=== PATIENT | female | born 1975 | race Caucasian/White ===

== ENCOUNTER 2016-07-27 20:56 | Emergency (ER) | payer OTHER ==
[2016-07-27 21:04] VITALS: BP 127/78; PULSE 87; RESP 16; TEMP 98.3
--- NOTE | 2016-07-27 21:20 | ED ---
Lower Extremity Injury HPI - General Chief Complaint: Extremity Injury, Lower Stated Complaint: Foot Pain Time Seen by Provider: 07/27/16 21:14 Source: patient Mode of arrival: ambulatory Limitations: no limitations - History of Present Illness Initial Comments: Patient is a 41-year-old female presenting to the emergency department with complaints of left foot pain. Patient states she was at the grocery store when she accidentally bumped her foot against a shopping cart. Patient states that her little toe went sideways but now looks normal. Patient is complaining of a throbbing pain currently rated 6 out of 10. Patient is able to ambulate. Patient denies previous surgery or injury to right lower extremity. Patient states she took Motrin approximately 3 hours prior to arrival. Type of Injury: blunt Place: other Severity: moderate Severity scale (1-10): 6 Improves With: NSAID, immobilization Worsens With: weight bearing, palpation Context: walking Associated Symptoms: swelling, tingling, ambulatory Treatments Prior to Arrival: NSAIDS - Related Data Home Medications Medication Instructions Recorded Confirmed Azithromycin [Zithromax Z-pack] 07/15/13 07/15/13 Hyoscyamine Sulfate [Hyoscyamine 07/15/13 07/15/13 Sulfate ER] Previous Rx's Medication Instructions Recorded Dicyclomine HCl [Bentyl] 20 mg PO QID #10 tab 07/16/13 Allergies Allergy/AdvReac Type Severity Reaction Status Date / Time venom-honey bee Allergy Anaphylaxis Verified 07/27/16 21:04 [bee venom (honey bee)] Review of Systems ROS Statement: Those systems with pertinent positive or pertinent negative responses have been documented in the HPI. ROS Other: All systems not noted in ROS Statement are negative. Past Medical History Additional Past Medical History / Comment(s): IBS History of Any Multi-Drug Resistant Organisms: None Reported Additional Past Surgical History / Comment(s): ovarian cyst removal Past Psychological History: No Psychological Hx Reported Smoking Status: Current every day smoker Past Alcohol Use History: None Reported Past Drug Use History: None Reported General Exam - General Exam Comments Initial Comments: GENERAL: Pt awake and alert, well-appearing, well-nourished, and in no acute distress. HEAD: Atraumatic, normocephalic. EYES: Pupils equal, round, and reactive to light, extraocular movements intact, sclera anicteric, conjunctiva are normal. ENT: Moist mucous membranes. NECK:Normal range of motion, supple without lymphadenopathy. LUNGS: Breath sounds clear to auscultation bilaterally. No wheezes, rales, or rhonchi. HEART: Heart S1, S2, no S3 or S4. Regular rate and rhythm. No murmurs, rubs or gallops. ABDOMEN: Soft, nontender, nondistended, normoactive bowel sounds. NEUROLOGICAL: Pt oriented x 3. Cranial nerves II through XII grossly intact. Strength and sensation grossly intact. PSYCH: Normal mood, normal affect. SKIN: Warm, dry, intact. Limitations: no limitations Right Ankle exam: Present: normal inspection, full ROM. Absent: tenderness, swelling Foot/Toe exam: Present: full ROM, tenderness, swelling, ecchymosis, tenderness at base of 5th metatarsal. Absent: deformity, calcaneal tenderness Neurovascular tendon exam: Present: no vascular compromise. Absent: abnormal cap refill, motor deficit, sensory deficit, tendon deficit, extremity cold to touch, foot drop, significant pain with passive ROM of distal joint Gait: observed and limited by pain Course Vital Signs 07/27/16 21:00 Temperature 98.3 F Pulse Rate 87 Respiratory 16 Rate Blood Pressure 127/78 O2 Sat by Pulse 99 Oximetry Medical Decision Making - Medical Decision Making Right foot contusion. X-ray of right foot with no evidence of acute fracture or dislocation. Patient instructed to continue Motrin and ice as needed for pain. Patient instructed [facility] if pain persists. Patient instructed to return to the emergency department if symptoms do not improve or get worse. Patient agrees with treatment plan. Discharge instructions and return parameters reviewed. - Radiology Data Radiology results: report reviewed No acute fracture or dislocation evident in the right foot. The joint spaces of the right foot appear within normal limits. Unfused apophysis knee at the lateral base of cuboid bone is present. The overlying soft tissue appears unremarkable. Disposition Clinical Impression: Contusion of foot, right Disposition: HOME SELF-CARE Condition: Good Instructions: Foot Contusion (ED) Additional Instructions: Continue Motrin and ice next 48 hours for pain and to decrease swelling. If pain persist please follow-up with orthopedic service. Please return to the emergency department with any new or worsening symptoms. Referrals: Harris Lopez MD [Primary Care Provider] - 1-2 days Kiran,Sherwin J, PAC [PHYSICIAN [employer]] - 1-2 days Time of Disposition: 21:52
--- NOTE | 2016-07-27 21:37 | XR ---
EXAMINATION TYPE: XR foot complete RT DATE OF EXAM: 07/27/2016 CLINICAL HISTORY: Right foot pain swelling and bruising worse over fifth digit TECHNIQUE: Frontal, lateral, and oblique images of the right foot are obtained. COMPARISON: None FINDINGS: There is no acute fracture/dislocation evident in the right foot. The joint spaces in the right foot appear within normal limits. Unfused apophysis near the lateral base of cuboid bone is pr esent. The overlying soft tissue appears unremarkable. IMPRESSION: There is no acute fracture or dislocation in the right foot.
== END 2016-07-27 21:53 | disposition home or self-care (01) ==
LOC: EC 20:56
DX: S90.31XA Contusion of right foot, initial encounter (principal); K58.9 Irritable bowel syndrome, unspecified; F17.200 Nicotine dependence, unspecified, uncomplicated; Z79.899 Other long term (current) drug therapy; Z91.030 Bee allergy status; W22.09XA Striking against other stationary object, initial encounter; Y92.512 Supermarket, store or market as the place of occurrence of the external cause
CPT/HCPCS: 99283

== ENCOUNTER → 2016-09-25 | Outpatient (CLI) | payer OTHER ==
--- NOTE | 2016-09-26 08:49 | MM ---
Reason for exam: screening (asymptomatic). Baseline mammogram. History: Patient had first child at age 35. Taking hormonal contraceptives for 20 years beginning at age 15. Physical Findings: Nurse did not find any significant physical abnormalities on exam. MG Screening Mammo w CAD Bilateral CC and MLO view(s) were taken. The breast tissue is heterogeneously dense. This may lower the sensitivity of mammography. Central posterior asymmetric density on the right MLO view likely summation artifact. 6 month follow up recommended. Otherwise, no discrete abnormality is seen. These results were verbally communicated with the patient and result sheet given to the patient on 09/25/16. ASSESSMENT: Probably benign, BI-RAD 3 RECOMMENDATION: Follow-up diagnostic mammogram of the right breast in 6 months.
== END | disposition home or self-care (01) ==
LOC: RADMAMWWP 14:09
PROVIDERS: ATTEND Family Medicine
DX: Z12.31 Encounter for screening mammogram for malignant neoplasm of breast (principal)

== ENCOUNTER → 2017-03-20 | Outpatient (CLI) | payer OTHER ==
--- NOTE | 2017-03-20 11:55 | MM ---
Reason for exam: follow-up at short interval from prior study. Last mammogram was performed 6 months ago. History: Patient had first child at age 35. Taking hormonal contraceptives for 20 years beginning at age 15. Physical Findings: Nurse Summary: 1 x 1cm nodule in the right breast at 12 o'clock (nurse ts). MG Diagnostic Mammo RT w CAD CC, MLO, and ML view(s) were taken of the right breast. Prior study comparison: September 25, 2016, bilateral MG screening mammo w CAD. The breast tissue is heterogeneously dense. This may lower the sensitivity of mammography. No suspicious abnormality. The previously questioned asymmetry appears as fibroglandular tissue within the central right breast. These results were verbally communicated with the patient and result sheet given to the patient on 03/20/17. ASSESSMENT: Incomplete: need additional imaging evaluation, BI-RAD 0 RECOMMENDATION: Ultrasound of the right breast. (palpable)
--- NOTE | 2017-03-20 11:57 | USB ---
Reason for exam: additional evaluation requested from abnormal screening. History: Patient had first child at age 35. Taking hormonal contraceptives for 20 years beginning at age 15. US Breast Workup Limited RT Right breast ultrasound demonstrates prominent ducts at the nipple and a 0.5 x 0.3 x 0.5cm benign lymph node at 9 o'clock. These results were verbally communicated with the patient and result sheet given to the patient on 03/20/17. ASSESSMENT: Benign, BI-RAD 2 RECOMMENDATION: Return to routine screening mammogram schedule for both breasts. Back on schedule for September 2017.
== END | disposition home or self-care (01) ==
LOC: RADMAMWWP 10:31
PROVIDERS: ATTEND Family Medicine
DX: R92.8 Other abnormal and inconclusive findings on diagnostic imaging of breast (principal)
CPT/HCPCS: 77065

== ENCOUNTER → 2017-12-08 | Outpatient (CLI) | payer OTHER ==
--- NOTE | 2017-12-09 13:23 | MM ---
Reason for exam: screening (asymptomatic). Last mammogram was performed 9 months ago. History: Patient had first child at age 35. Taking hormonal contraceptives for 20 years beginning at age 15. Physical Findings: A clinical breast exam by your physician is recommended on an annual basis and results should be correlated with mammographic findings. MG Screening Mammo w CAD Bilateral CC and MLO view(s) were taken. Prior study comparison: March 20, 2017, right breast MG diagnostic mammo RT w CAD. September 25, 2016, bilateral MG screening mammo w CAD. The breast tissue is heterogeneously dense. This may lower the sensitivity of mammography. Right central asymmetry 2.5cm from nipple. Left upper outer quadrant posterior depth focal asymmetries. ASSESSMENT: Incomplete: need additional imaging evaluation, BI-RAD 0 RECOMMENDATION: Special view mammogram of both breasts. If lesion persists on supplemental views, image directed ultrasound is recommended. [facility] will attempt to contact patient to return for supplemental views and ultrasound if indicated.
== END | disposition home or self-care (01) ==
LOC: RADMAMWWP 08:56
PROVIDERS: ATTEND Family Medicine
DX: Z12.31 Encounter for screening mammogram for malignant neoplasm of breast (principal)
CPT/HCPCS: 77067

== ENCOUNTER → 2017-12-11 | Outpatient (CLI) | payer OTHER ==
--- NOTE | 2017-12-11 11:05 | MM ---
Reason for exam: additional evaluation requested from abnormal screening. Last mammogram was performed less than 1 month ago. History: Patient had first child at age 35. Taking hormonal contraceptives for 20 years beginning at age 15. Physical Findings: Nurse did not find any significant physical abnormalities on exam. MG Work Up Mamm w CAD BILAT Bilateral spot compression CC, spot compression MLO, and LM view(s) were taken. Prior study comparison: December 08, 2017, bilateral MG screening mammo w CAD. March 20, 2017, right breast MG diagnostic mammo RT w CAD. The breast tissue is heterogeneously dense. This may lower the sensitivity of mammography. No suspicious abnormality. The bilateral asymmetries improve on additional views and appear as adjacent fibroglandular tissue does. No significant new findings when compared with previous films. These results were verbally communicated with the patient and result sheet given to the patient on 12/11/17. ASSESSMENT: Benign, BI-RAD 2 RECOMMENDATION: Return to routine screening mammogram schedule for both breasts.
== END | disposition home or self-care (01) ==
LOC: RADMAMWWP 09:33
PROVIDERS: ATTEND Family Medicine
DX: R92.8 Other abnormal and inconclusive findings on diagnostic imaging of breast (principal)
CPT/HCPCS: 77066

== ENCOUNTER 2018-11-15 10:13 | Emergency (ER) | payer OTHER ==
[2018-11-15 10:17] VITALS: RESP 18
[2018-11-15] MEDS ORDERED: ACETAMINOPHEN TAB 325 MG TAB PO STA (10:27)
--- NOTE | 2018-11-15 10:38 | ED ---
General Adult HPI - General Chief complaint: Extremity Injury, Lower Stated complaint: RT WRIST INJURY Time Seen by Provider: 11/15/18 10:18 Source: patient, RN notes reviewed Mode of arrival: ambulatory Limitations: no limitations - History of Present Illness Initial comments: 43-year-old female with a past medical history of IBS presents for right hand injury times one day. Patient states she was rollerblading yesterday when she fell backwards and onto her hand. States she actually did not start to notice that hurting until this morning when she reached for the coffee pot and saw that it was swollen and painful. Denies hitting her head. Denies any other injuries. Patient states the pain is mostly on the medial aspect of the dorsal right wrist.Patient has no other complaints at this time including shortness of breath, chest pain, abdominal pain, nausea or vomiting, headache, or visual changes. - Related Data Home Medications Medication Instructions Recorded Confirmed Ibuprofen [Motrin Ib] 400 mg PO Q6H PRN 11/15/18 11/15/18 Norethindrone [Ortho Micronor] 0.35 mg PO HS 11/15/18 11/15/18 Vilazodone HCl [Viibryd] 20 mg PO DAILY 11/15/18 11/15/18 Allergies Allergy/AdvReac Type Severity Reaction Status Date / Time venom-honey bee Allergy Anaphylaxis Verified 11/15/18 10:24 [bee venom (honey bee)] Review of Systems ROS Statement: Those systems with pertinent positive or pertinent negative responses have been documented in the HPI. ROS Other: All systems not noted in ROS Statement are negative. Past Medical History Additional Past Medical History / Comment(s): IBS History of Any Multi-Drug Resistant Organisms: None Reported Additional Past Surgical History / Comment(s): ovarian cyst removal Past Psychological History: No Psychological Hx Reported Smoking Status: Current every day smoker Past Alcohol Use History: None Reported Past Drug Use History: None Reported General Exam Limitations: no limitations General appearance: alert, in no apparent distress Head exam: Present: atraumatic, normocephalic, normal inspection Eye exam: Present: normal appearance, PERRL, EOMI. Absent: scleral icterus, conjunctival injection, periorbital swelling ENT exam: Present: normal exam, mucous membranes moist Neck exam: Present: normal inspection, full ROM. Absent: tenderness, meningismus, lymphadenopathy Respiratory exam: Present: normal lung sounds bilaterally. Absent: respiratory distress, wheezes, rales, rhonchi, stridor Cardiovascular Exam: Present: regular rate, normal rhythm, normal heart sounds. Absent: systolic murmur, diastolic murmur, rubs, gallop, clicks Extremities exam: Present: tenderness (Tenderness noted to the dorsal proximal fourth metacarpal. No tenderness noted on the radial aspect of the wrist. No snuffbox tenderness. No tenderness throughout the fingers or the proximal forearm.), normal capillary refill (Capillary refill less than, radial pulse 2+.), joint swelling (Mild edema present in the right wrist.), other (Sensation intact in the right upper extremity. Patient able to move all fingers.). Absent: normal inspection, full ROM (Patient has full flexion with limited extension to about 10 of the right wrist. This was limited by pain.), pedal edema, calf tenderness Course Vital Signs 11/15/18 10:14 Temperature 98.3 F Pulse Rate 73 Respiratory 18 Rate Blood Pressure 124/80 O2 Sat by Pulse 98 Oximetry Medical Decision Making - Medical Decision Making 43-year-old female with a past medical history of IBS presents for right hand injury yesterday. Patient noticed it hurting today. HPI and physical exam as documented. Physical exam pertinent for tenderness over the fifth metacarpal area on the dorsal right hand as well as the dorsal ulnar right wrist. No scaphoid tenderness. X-ray of the right wrist and hand shows no acute osseous lesion. Patient will be wrapped with an Jeovanny wrap. She'll follow up with primary care in 1-2 days. She will also be given orthopedic referral if necessary. She'll return if she has any worsening symptoms. Disposition Clinical Impression: Right wrist injury Disposition: HOME SELF-CARE Condition: Good Instructions (If sedation given, give patient instructions): Wrist Injury (ED) Additional Instructions: Please take Motrin and Tylenol for pain. Rest ice it and elevate the right hand and wrist. Use Jeovanny wrap as needed. Follow-up with orthopedics and primary care. Return to the emergency department if you have any worsening symptoms. Is patient prescribed a controlled substance at d/c from ED?: No Referrals: Zeke Richter III, MD [Primary Care Provider] - 1-2 days Michael Pathak DO [Doctor of Osteopathic Medicine] - 1-2 days Time of Disposition: 11:22
--- NOTE | 2018-11-15 11:03 | XR ---
EXAMINATION TYPE: XR hand complete RT , 3 VIEWS DATE OF EXAM ORDERED: 11/15/2018 HISTORY: pain, proximal 4th Metacarpal. COMPARISON: None. FINDINGS: No fracture, dislocation or other acute osseous lesion is seen. IMPRESSION: NO ACUTE OSSEOUS LESION.
--- NOTE | 2018-11-15 11:04 | XR ---
EXAMINATION TYPE: XR wrist complete RT , 4 VIEWS DATE OF EXAM ORDERED: 11/15/2018 HISTORY: pain. COMPARISON: None. FINDINGS: No fracture, dislocation or other acute osseous lesion is seen. IMPRESSION: NO ACUTE OSSEOUS LESION.
[2018-11-15 11:55] VITALS: BP 128/96; PULSE 72; TEMP 98.2
== END 2018-11-15 11:55 | disposition home or self-care (01) ==
LOC: EC 10:13
DX: S69.91XA Unspecified injury of right wrist, hand and finger(s), initial encounter (principal); F17.200 Nicotine dependence, unspecified, uncomplicated; Z91.030 Bee allergy status; Z79.3 Long term (current) use of hormonal contraceptives; V00.111A Fall from in-line roller-skates, initial encounter; Y93.51 Activity, roller skating (inline) and skateboarding
CPT/HCPCS: 99283

== ENCOUNTER 2018-12-29 14:23 | Emergency (ER) | payer OTHER ==
[2018-12-29 14:27] VITALS: BP 117/78; PULSE 95; RESP 18; TEMP 98
[2018-12-29] MEDS ORDERED: DIAZEPAM 5 MG TAB PO STA (14:32)
[2018-12-29] MEDS ORDERED: KETOROLAC 60 MG/2 ML VIAL IM STA (14:32)
[2018-12-29] MEDS ORDERED: ACET/COD 300 MG/30 MG STARTER PACK 6 TAB BTL PO STA (14:33)
--- NOTE | 2018-12-29 14:35 | ED ---
Back Pain HPI - General Source: patient Limitations: no limitations <Stormy Schultz - Last Filed: 12/29/18 14:37> <Umm Cornelius - Last Filed: 12/31/18 00:57> - General Chief Complaint: Back Pain/Injury Stated Complaint: Lower back pain Time Seen by Provider: 12/29/18 14:28 - History of Present Illness Initial Comments: 43-year-old female presenting today for chief complaint of right lower back pain. Patient states she was shoveling around 7:30 PM while shoveling she developed spasming and pain in the right lower back. Patient denies fall or direct trauma. Denies fevers IV drug use loss of bowel bladder control urinary retention or weakness of the lower extremity. Patient denies any radiation the pain she states is sharp stabbing increases with movements. Patient denies any other injuries or complaints. Denies urinary symptoms. Patient denies any difficulty in relating. Upon arrival patient appears well. Vital signs within acceptable limits. (Stormy Schultz) - Related Data Home Medications Medication Instructions Recorded Confirmed Ibuprofen [Motrin Ib] 400 mg PO Q6H PRN 11/15/18 11/15/18 Norethindrone [Ortho Micronor] 0.35 mg PO HS 11/15/18 11/15/18 Vilazodone HCl [Viibryd] 20 mg PO DAILY 11/15/18 11/15/18 Previous Rx's Medication Instructions Recorded Cyclobenzaprine [Flexeril] 10 mg PO TID PRN 7 Days #21 tab 12/29/18 Ibuprofen 800 mg PO Q8H PRN 7 Days #21 tablet 12/29/18 Allergies Allergy/AdvReac Type Severity Reaction Status Date / Time venom-honey bee Allergy Anaphylaxis Verified 12/29/18 14:24 [bee venom (honey bee)] Review of Systems ROS Other: All systems not noted in ROS Statement are negative. <Stormy Schultz - Last Filed: 12/29/18 14:37> ROS Other: All systems not noted in ROS Statement are negative. <Umm Cornelius - Last Filed: 12/31/18 00:57> ROS Statement: Those systems with pertinent positive or pertinent negative responses have been documented in the HPI. Past Medical History Additional Past Medical History / Comment(s): IBS History of Any Multi-Drug Resistant Organisms: None Reported Additional Past Surgical History / Comment(s): ovarian cyst removal Past Psychological History: Depression Smoking Status: Current every day smoker Past Alcohol Use History: None Reported Past Drug Use History: None Reported <Stormy Schultz - Last Filed: 12/29/18 14:37> General Exam Limitations: no limitations <MarionStormy Hay - Last Filed: 12/29/18 14:37> - General Exam Comments Initial Comments: General: The patient is awake and alert, in no distress, holding right lower back Eye: Pupils are equal, round and reactive to light, extra-ocular movements are intact. No nystagmus. There is normal conjunctiva bilaterally. No signs of icterus. Cardiovascular: There is a regular rate and rhythm. No murmur, rub or gallop is appreciated. Respiratory: Lungs are clear to auscultation, respirations are non-labored, laura ath sounds are equal. No wheezes, stridor, rales, or rhonchi. Musculoskeletal: Normal inspection of the cervicothoracic and lumbar spine. Patient has no midline tenderness to palpation of the cervical thoracic or lumbar spine. Patient has right-sided paravertebral tenderness with palpable muscle tension. Normal ROM, no tenderness of the lower extremity bilaterally. Negative straight leg raise. +2 out of 5 and patellar reflexes. Strength 5/5 of the lower extremity bilaterally. Sensation intact of the lower extremity bilaterally including the saddle region. Pulses equal bilaterally 2+. Neurological: A&O x 3. CN II-XII intact grossly, There are no obvious motor or sensory deficits. Coordination appears grossly intact. Speech is normal. Skin: Skin is warm and dry and no rashes or lesions are noted. Psychiatric: Cooperative, appropriate mood & affect, normal judgment. (Stormy Schultz) Course Vital Signs 12/29/18 14:24 Temperature 98 F Pulse Rate 95 Respiratory 18 Rate Blood Pressure 117/78 O2 Sat by Pulse 98 Oximetry Medical Decision Making <Stormy Schultz - Last Filed: 12/29/18 14:37> <Umm Cornelius - Last Filed: 12/31/18 00:57> - Medical Decision Making 43-year-old feel presented for low back pain after shoveling. No alarming history and physical examination findings. History consistent with possible low back strain. Patient be treated symptomatically with instructed to follow-up with primary care provider. Return parameters discussed patient discharged. While discussing the case my attending provider Dr. Cornelius. (Stormy Schultz) I was available for consultation in the emergency department. The history and physical exam were done by the midlevel provider. I was consulted for this patients care. I reviewed the case with the midlevel provider and based on their presentation of the patient, I agree with the assessment, medical decision making and plan of care as documented. Chart was dictated using [employer] dictation software. Attempts were made to correct any dictation errors however some typographical errors may persist. (Umm Cornelius) Disposition Is patient prescribed a controlled substance at d/c from ED?: No Time of Disposition: 14:34 <Stormy Schultz - Last Filed: 12/29/18 14:37> <Umm Cornelius - Last Filed: 12/31/18 00:57> Clinical Impression: Low back strain Disposition: HOME SELF-CARE Condition: Good Instructions (If sedation given, give patient instructions): Low Back Strain (ED) Additional Instructions: Please use medication as discussed-Gen. work, drive, operate machinery while taking flexeril. Please follow-up with family doctor in the next 2 days of symptoms have not improved. Please apply heat to the area 20 minutes on 20 minutes off up to 3 times a day, do not use at the same times as topical muscle relief creams, as this is a risk for thermal muñoz. Please return to emergency room if the symptoms increase or worsen or for any other concerns. Prescriptions: Cyclobenzaprine [Flexeril] 10 mg PO TID PRN 7 Days #21 tab PRN Reason: Muscle Spasm Ibuprofen 800 mg PO Q8H PRN 7 Days #21 tablet PRN Reason: Pain Referrals: Zeke Richter III, MD [Primary Care Provider] - 1-2 days
== END 2018-12-29 14:37 | disposition home or self-care (01) ==
LOC: EC 14:23
DX: S39.012A Strain of muscle, fascia and tendon of lower back, initial encounter (principal); F32.9 Major depressive disorder, single episode, unspecified; F17.200 Nicotine dependence, unspecified, uncomplicated; Z91.030 Bee allergy status; Z79.3 Long term (current) use of hormonal contraceptives; Z79.899 Other long term (current) drug therapy; X58.XXXA Exposure to other specified factors, initial encounter; Y93.H1 Activity, digging, shoveling and raking; Y92.009 Unspecified place in unspecified non-institutional (private) residence as the place of occurrence of the external cause
CPT/HCPCS: 99283; 96372; J1885

== ENCOUNTER → 2019-09-16 | Outpatient (CLI) | payer OTHER ==
[2019-09-16 12:02] LABS: Basophils % (A) 1 %; Eosinophils # (A) 0.2 k/uL (0-0.7); Eosinophils % (A) 3 %; HGB 12.8 gm/dL (11.4-16.0); Lymphocytes # (A) 2.2 k/uL (1.0-4.8); Lymphocytes % (A) 37 %; MCH 28.5 pg (25.0-35.0); MCHC 30.4 g/dL (31.0-37.0); MCV 93.8 fL (80.0-100.0); Mean Platelet Volume 7.7; Monocytes # (A) 0.3 k/uL (0-1.0); Monocytes % (A) 5 %; Neutrophils # (A) 3.1 k/uL (1.3-7.7); Neutrophils % (A) 52 %; Platelet Count 362 k/uL (150-450); RBC 4.48 m/uL (3.80-5.40)
[2019-09-16 17:11] LABS: T4, Free (Free Thyroxine) 1.1 ng/dL (0.80-1.80)
[2019-09-16 17:22] LABS: African American GFR (CKD) 127.6 (60.0-200.0); Albumin 4.3 g/dL (3.80-4.90); Albumin/Globulin Ratio 2.15 (1.60-3.17); Anion Gap 5.5 mmol/L (4.00-12.00); Calcium 9.5 mg/dL (8.7-10.3); Carbon Dioxide 23.5 mmol/L (21.6-31.8); Chol/HDL Ratio 3.89; LDL Cholesterol,Calculated 142.6 mg/dL (0.0-131.0); Non-African American GFR(CKD) 110.1 (60.0-200.0); Potassium 4.4 mmol/L (3.5-5.5); Total Bilirubin 0.5 mg/dL (0.2-1.2); Total Protein 6.3 g/dL (6.2-8.2); VLDL Calculation 22.4 mg/dL (5.00-40.00)
[2019-09-16 17:47] LABS: Hemoglobin A1C 5.9 % (4.0-6.0)
== END | disposition home or self-care (01) ==
LOC: LABWHC1 10:48
PROVIDERS: ATTEND Family Medicine
DX: Z00.00 Encounter for general adult medical examination without abnormal findings (principal); Z20.9 Contact with and (suspected) exposure to unspecified communicable disease
CPT/HCPCS: 36415; 80053; 80061; 83036; 84439; 84443; 85025; 86803

== ENCOUNTER → 2020-09-21 | Outpatient (CLI) | payer OTHER ==
[2020-09-21 13:06] LABS: INR 0.9 (<1.2); Partial Thromboplastin Time 23.4 sec (22.0-30.0); Prothrombin Time 9.6 sec (9.0-12.0)
[2020-09-21 19:37] LABS: HCT 39.6 % (37.2-46.3); HGB 12.8 g/dL (12.0-15.0); MCH 29.6 pg (27.0-32.0); MCHC 32.3 g/dL (32.0-37.0); MCV 91.5 fL (80.0-97.0); Mean Platelet Volume 10.5 fL (9.5-12.2); Platelet Count 422 X 10*3/uL (140-440); RBC 4.33 X 10*6/uL (4.10-5.20); RDW 13.1 % (11.5-14.5); WBC 6.06 X 10*3/uL (4.50-10.00)
[2020-09-21 22:36] LABS: Hemoglobin A1C 5.8 % (4.0-6.0)
[2020-09-21 23:09] LABS: Ferritin 52.1 ng/mL (10.0-291.0)
[2020-09-21 23:18] LABS: % Iron Saturation 24.63 (12.00-45.00); African American GFR (CKD) 126.7 (60.0-200.0); Albumin 4.4 g/dL (3.80-4.90); Albumin/Globulin Ratio 2.1 (1.60-3.17); Anion Gap 7.3 mmol/L (4.00-12.00); BUN/Creat Ratio 28.33 Ratio (12.00-20.00); Calcium 9.2 mg/dL (8.7-10.3); Carbon Dioxide 22.7 mmol/L (21.6-31.8); Chol/HDL Ratio 4.49; Folate, Serum 11.6 ng/mL; Globulin 2.1 g/dL (1.6-3.3); LDL Cholesterol,Calculated 144.8 mg/dL (0.0-131.0); Magnesium 1.8 mg/dL (1.5-2.4); Non-African American GFR(CKD) 109.3 (60.0-200.0); Phosphorus 2.7 mg/dL (2.4-5.1); Potassium 4.5 mmol/L (3.5-5.5); Total Bilirubin 0.3 mg/dL (0.3-1.2); Total Protein 6.5 g/dL (6.2-8.2); VLDL Calculation 33.2 mg/dL (5.00-40.00)
[2020-09-22 15:01] LABS: Zinc, Serum 73 ug/dL (60-130)
== END | disposition home or self-care (01) ==
LOC: LABWHC1 10:55
PROVIDERS: ATTEND Surgery Plastic and Reconstructive Surgery
DX: E66.01 Morbid (severe) obesity due to excess calories (principal); E89.1 Postprocedural hypoinsulinemia; D50.8 Other iron deficiency anemias; E44.0 Moderate protein-calorie malnutrition; E55.9 Vitamin D deficiency, unspecified; K74.1 Hepatic sclerosis; N19 Unspecified kidney failure; K50.90 Crohn's disease, unspecified, without complications; Z98.84 Bariatric surgery status; Z71.51 Drug abuse counseling and surveillance of drug abuser
CPT/HCPCS: 84255; 84134; 84425; 80061; 80053; 82607; 82728; 82525; 82746; 83540; 83550; 83735; 84100; 84443; 84590; 84630; 85027; 85610; 85730; 82306; 83970; 83036; 80307; 93005; 36415; G0480; G0482; 80323

== ENCOUNTER 2020-11-20 06:46 | Day surgery (SDC) | payer OTHER ==
[2020-11-15 09:44] VITALS: BMI 38.2
--- NOTE | 2020-11-20 05:15 | P.GSHP ---
History of Present Illness H&P Date: 11/20/20 CHIEF COMPLAINT: GERD HISTORY OF PRESENT ILLNESS: The patient is a 45-year-old female who presents reports gastroesophageal reflux disease. Upper endoscopy was offered for further evaluation and management. PAST MEDICAL HISTORY: Please see list. PAST SURGICAL HISTORY: Please see list. MEDICATIONS: Please see list. ALLERGIES: Please see list. SOCIAL HISTORY: No illicit drug use FAMILY HISTORY: No reports of Crohn disease or ulcerative colitis. REVIEW OF ORGAN SYSTEMS: CONSTITUTIONAL: No reports of fevers or chills. GI: Denies any blood in stools or constipation. PHYSICAL EXAM: VITAL SIGNS: Stable GENERAL: Well-developed and pleasant in no acute distress. HEENT: No scleral icterus. Extraocular movements grossly intact. Moist buccal mucosa. NECK: Supple without lymphadenopathy. CHEST: Unlabored respirations. Equal bilateral excursions. CARDIOVASCULAR: Regular rate and rhythm. Distal 2+ pulses. ABDOMEN: Soft, nondistended. MUSCULOSKELETAL: No clubbing, cyanosis, or edema. ASSESSMENT: 1. Gastroesophageal reflux disease PLAN: 1. Recommend proceeding with an upper endoscopy Past Medical History Additional Past Medical History / Comment(s): IBS. SEEN AT [facility] 11/12/20 FOR ABD. PAIN-DX WITH DIVERTICULITIS History of Any Multi-Drug Resistant Organisms: None Reported Additional Past Surgical History / Comment(s): ovarian cyst removal Past Anesthesia/Blood Transfusion Reactions: Motion Sickness Smoking Status: Current every day smoker - Past Family History Father Family Medical History: Cancer Medications and Allergies Home Medications Medication Instructions Recorded Confirmed Type Ibuprofen [Motrin Ib] 400 mg PO Q6H PRN 11/15/18 11/15/20 History Vilazodone HCl [Viibryd] 20 mg PO DAILY 11/15/18 11/15/20 History Allergies Allergy/AdvReac Type Severity Reaction Status Date / Time venom-honey bee Allergy Anaphylaxis Verified 11/15/20 09:36 [bee venom (honey bee)]
[~2020-11-20 06:46] MED LIST: LACTATED RINGERS 1,000 ML IV SCH; LIDOCAINE 1% (10MG/ML) FOR IV START INTRADERMA PRN
[2020-11-20 07:26] VITALS: TEMP 97
[2020-11-20] MEDS ORDERED: PROPOFOL 10 MG/ML 20 ML VIAL IV ONE (07:43)
[2020-11-20] MEDS ORDERED: LIDOCAINE 1% INJ 10MG/ML (20 ML MDV) ONE (07:43)
--- NOTE | 2020-11-20 08:00 | P.PCN ---
Date of Procedure: 11/20/20 Description of Procedure: PREOPERATIVE DIAGNOSIS: Gastroesophageal reflux disease. Morbid obesity. POSTOPERATIVE DIAGNOSIS: Morbid obesity. Gastritis. Tobacco use disorder Duodenitis Gastroesophageal reflux disease with erosive esophagitis Diaphragmatic hiatal hernia OPERATION: Esophagogastroduodenoscopy with biopsies along antrum and duodenum SURGEON: Zandra Collier MD ANESTHESIA: MAC. INDICATIONS: The patient is a 45-year-old female who presents with a history of reflux disease. Benefits and risks of the procedure were described. Informed consent was obtained. DESCRIPTION: The patient was brought into the endoscopy suite and laid in the left lateral decubitus position. An Olympus gastroscope was passed along the posterior oropharynx down to the distal esophagus where the squamocolumnar junction was encountered at 37 cm from the incisors. The stomach was entered and no bile reflux was found. Additional findings are listed below. Biopsies with cold forceps were obtained of the antrum. The first through third portion of the duodenum was examined for duodenitis. Retroflexion of the scope confirmed Hill grade 2 lower esophageal valve. The squamocolumnar junction demonstrated LA grade B erosive esophagitis. The stomach was desufflated. The patient tolerated the procedure well. FINDINGS: Squamocolumnar junction 37 cm from the incisors. Diaphragmatic hiatus at 38 cm. Hiatal hernia, 1 cm Hill grade 4 lower esophageal valve. LA grade B erosive esophagitis. Active duodenitis. Chronic gastritis RECOMMENDATIONS: 1. How to stop smoking handout recommended for duodenitis and gastritis 2. Omeprazole 40 mg daily for 2 weeks for gastritis and duodenitis Plan - Discharge Summary Discharge Rx Participant: No New Discharge Prescriptions: New Omeprazole [PriLOSEC] 40 mg PO DAILY #14 cap Continue Vilazodone HCl [Viibryd] 20 mg PO DAILY Ibuprofen [Motrin Ib] 400 mg PO Q6H PRN PRN Reason: Pain metroNIDAZOLE [Flagyl] 500 mg PO TID Ciprofloxacin HCl [Cipro] 500 mg PO BID HYDROcodone/APAP 5-325MG [Fossil 5-325] 1 tab PO Q4-6H Ondansetron [Zofran ODT] 1 tab PO DIRECTED PRN PRN Reason: Mild Nausea And/Or Anxiety Discharge Medication List Ibuprofen [Motrin Ib] 400 mg PO Q6H PRN 11/15/18 [History] Vilazodone HCl [Viibryd] 20 mg PO DAILY 11/15/18 [History] Ciprofloxacin HCl [Cipro] 500 mg PO BID 11/20/20 [History] HYDROcodone/APAP 5-325MG [Fossil 5-325] 1 tab PO Q4-6H 11/20/20 [History] Omeprazole [PriLOSEC] 40 mg PO DAILY #14 cap 11/20/20 [Rx] Ondansetron [Zofran ODT] 1 tab PO DIRECTED PRN 11/20/20 [History] metroNIDAZOLE [Flagyl] 500 mg PO TID 11/20/20 [History] [facility] [facility] [place] [place] [facility] - [place]20 Patient Instructions/Handouts: Duodenitis (DC), How to Stop Smoking (DC), Diet for Stomach Ulcers and Gastritis (ED) Discharge Disposition: HOME SELF-CARE
[2020-11-20 08:17] VITALS: BP 109/65; PULSE 72; RESP 16
== END 2020-11-20 09:01 | disposition home or self-care (01) ==
LOC: ORWHC2ENDO 06:46
PROVIDERS: ATTEND Surgery Plastic and Reconstructive Surgery
DX: K21.00 Gastro-esophageal reflux disease with esophagitis, without bleeding (principal); E66.01 Morbid (severe) obesity due to excess calories; K29.70 Gastritis, unspecified, without bleeding; K29.80 Duodenitis without bleeding; K44.9 Diaphragmatic hernia without obstruction or gangrene; F32.9 Major depressive disorder, single episode, unspecified
CPT/HCPCS: 43239; 81025; J2001; J2704; 88305; 88342

== ENCOUNTER → 2021-04-16 | Outpatient (CLI) | payer OTHER ==
[2021-04-16 10:45] VITALS: BMI 38.6
== END ==
LOC: BARWHC3 08:24
PROVIDERS: ATTEND Surgery Plastic and Reconstructive Surgery
DX: E66.01 Morbid (severe) obesity due to excess calories (principal); Z71.3 Dietary counseling and surveillance; F17.200 Nicotine dependence, unspecified, uncomplicated; Z88.1 Allergy status to other antibiotic agents; Z91.030 Bee allergy status; Z68.38 Body mass index [BMI] 38.0-38.9, adult
CPT/HCPCS: 97804

== ENCOUNTER 2021-06-02 23:32 | Emergency (ER) | payer OTHER ==
[2021-06-03 00:27] VITALS: BP 131/89; PULSE 76; RESP 18; TEMP 98
[2021-06-03] MEDS ORDERED: SULFAMETHOX-TMP 800-160MG 1 EACH TAB PO STA (01:10)
--- NOTE | 2021-06-03 01:16 | ED ---
General Adult HPI - General Chief complaint: Eye Problems Stated complaint: Left Eye Problem, Facial Swelling Time Seen by Provider: 06/03/21 01:00 Source: patient, RN notes reviewed, old records reviewed Mode of arrival: ambulatory - History of Present Illness Initial comments: Patient presents with 2 days of left eye irritation and facial swelling. Patient denies any fevers, no nausea, vomiting or diarrhea. Patient states she's had a stye in the past that felt the same way. She denies any vision changes, no headaches, no fevers. -: days(s) (2) Location: face, eyes, left Radiation: non-radiation Severity scale (1-10): 7 Consistency: constant Improves with: none Worsens with: none Associated Symptoms: denies other symptoms Treatments Prior to Arrival: none - Related Data Home Medications Medication Instructions Recorded Confirmed Ibuprofen [Motrin Ib] 400 mg PO Q6H PRN 11/15/18 11/29/20 Vilazodone HCl [Viibryd] 20 mg PO DAILY 11/15/18 11/29/20 Ondansetron [Zofran ODT] 1 tab PO DIRECTED PRN 11/20/20 11/29/20 Ergocalciferol [Vitamin D2 (1250 50,000 unit PO WEEKLY 11/29/20 11/29/20 Mcg = [id number] Iu)] Previous Rx's Medication Instructions Recorded Omeprazole [PriLOSEC] 40 mg PO DAILY #14 cap 11/20/20 Sulfamethox-Tmp 800-160Mg [Bactrim 1 each PO Q12HR 7 Days #14 tab 06/03/21 Ds] Allergies Allergy/AdvReac Type Severity Reaction Status Date / Time amoxicillin [From Augmentin] Allergy Nausea & Verified 06/03/21 00:27 Vomiting clavulanic acid Allergy Nausea & Verified 06/03/21 00:27 [From Augmentin] Vomiting venom-honey bee Allergy Anaphylaxis Verified 06/03/21 00:27 [bee venom (honey bee)] Review of Systems ROS Statement: Those systems with pertinent positive or pertinent negative responses have been documented in the HPI. ROS Other: All systems not noted in ROS Statement are negative. Past Medical History Additional Past Medical History / Comment(s): IBS. diverticulitis History of Any Multi-Drug Resistant Organisms: None Reported Additional Past Surgical History / Comment(s): ovarian cyst removal Past Anesthesia/Blood Transfusion Reactions: Motion Sickness Past Psychological History: Anxiety, Depression Smoking Status: Current every day smoker Past Alcohol Use History: None Reported Past Drug Use History: None Reported - Past Family History Father Family Medical History: Cancer General Exam General appearance: alert, in no apparent distress Head exam: Present: atraumatic, normocephalic, normal inspection Eye exam: Present: PERRL, EOMI, other (Stye lower lid internal ; errythema left facial). Absent: scleral icterus ENT exam: Present: normal exam, normal oropharynx, mucous membranes moist Neck exam: Present: normal inspection. Absent: tenderness Respiratory exam: Present: normal lung sounds bilaterally. Absent: respiratory distress, accessory muscle use Cardiovascular Exam: Present: regular rate, normal heart sounds Neurological exam: Present: alert, oriented X3, normal gait Psychiatric exam: Present: normal affect, normal mood Skin exam: Present: warm, dry, normal color, erythema (left cheek) Course Vital Signs 06/03/21 00:21 Temperature 98 F Pulse Rate 76 Respiratory 18 Rate Blood Pressure 131/89 O2 Sat by Pulse 98 Oximetry Medical Decision Making - Medical Decision Making Patient has a stye left lower lid surrounding erythema to the left cheek. She denies any fevers. No vision changes. No headaches, no nausea vomiting or diarrhea. She'll be treated with Bactrim for facial cellulitis directed to use warm compresses to stye and follow-up with ophthalmology. Case discussed with Dr. Bliss Disposition Clinical Impression: Stye, Cellulitis Disposition: HOME SELF-CARE Condition: Good Instructions (If sedation given, give patient instructions): Cellulitis (ED), Stye (ED) Additional Instructions: Take antibiotics as prescribed, warm moist compresses multiple times throughout the day. Follow-up with ophthalmology next week. Prescriptions: Sulfamethox-Tmp 800-160Mg [Bactrim Ds] 1 each PO Q12HR 7 Days #14 tab Is patient prescribed a controlled substance at d/c from ED?: No Referrals: Acosta Copeland MD [Primary Care Provider] - 1-2 days Johnnie Cummins MD [STAFF PHYSICIAN] - 1-2 days Time of Disposition: 01:16
== END 2021-06-03 01:42 | disposition home or self-care (01) ==
LOC: EC 23:32
DX: H00.015 Hordeolum externum left lower eyelid (principal); L03.211 Cellulitis of face; F17.200 Nicotine dependence, unspecified, uncomplicated; Z91.030 Bee allergy status; Z88.0 Allergy status to penicillin
CPT/HCPCS: 99283

== ENCOUNTER → 2021-06-12 | Outpatient (CLI) | payer OTHER ==
--- NOTE | 2021-06-12 10:36 | XR ---
EXAMINATION TYPE: XR chest 1V DATE OF EXAM: 06/12/2021 COMPARISON: NONE HISTORY: Sleep apnea. Prebariatric surgery. TECHNIQUE: Single frontal view of the chest is obtained. FINDINGS: There is no suspicious focal air space opacity, pleural effusion, or pneumothorax seen. T he cardiac silhouette size is within normal limits. The osseous structures are intact. IMPRESSION: No acute process.
== END | disposition home or self-care (01) ==
LOC: RADXRMAIN 10:18
PROVIDERS: ATTEND Surgery Plastic and Reconstructive Surgery
DX: Z01.818 Encounter for other preprocedural examination (principal); G47.30 Sleep apnea, unspecified
CPT/HCPCS: 71045

== ENCOUNTER → 2022-06-17 | Outpatient (CLI) | payer OTHER ==
[2022-06-17 17:03] LABS: Basophils # (A) 0.01 X 10*3/uL (0.00-0.10); Basophils % (A) 0.2 %; Eosinophils # (A) 0.03 X 10*3/uL (0.04-0.35); Eosinophils % (A) 0.6 %; HGB 13.1 g/dL (12.0-15.0); Immature Grans, Automated 0.2 %; Lymphocytes # (A) 2.26 X 10*3/uL (0.90-5.00); Lymphocytes % (A) 41.5 %; MCH 28.9 pg (27.0-32.0); MCHC 31.2 g/dL (32.0-37.0); MCV 92.5 fL (80.0-97.0); Mean Platelet Volume 10.1 fL (9.5-12.2); Monocytes # (A) 0.31 X 10*3/uL (0.20-1.00); Monocytes % (A) 5.7 %; NRBC Per 100 WBC 0 /100 WBCS (0.0-0.0); Neutrophils # (A) 2.83 X 10*3/uL (1.80-7.70); Neutrophils % (A) 51.8 %; Platelet Count 401 X 10*3/uL (140-440); RBC 4.54 X 10*6/uL (4.10-5.20); RDW 13.2 % (11.5-14.5); WBC 5.45 X 10*3/uL (4.50-10.00)
[2022-06-17 17:15] LABS: ALT 30 U/L (8-44); AST 23 U/L (13-35); African American GFR (CKD) 120.8 (60.0-200.0); Albumin 4.4 g/dL (3.8-4.9); Albumin/Globulin Ratio 2.09 (1.60-3.17); Alkaline Phosphatase 141 U/L (41-126); BUN/Creat Ratio 19.25 Ratio (12.00-20.00); Blood Urea Nitrogen 12.8 mg/dL (9.0-27.0); Calcium 9.7 mg/dL (8.7-10.3); Carbon Dioxide 22.1 mmol/L (20.0-27.5); Chloride 106 mmol/L (96-109); Chol/HDL Ratio 4.97 Ratio; Globulin 2.1 g/dL (1.6-3.3); Glucose 96 mg/dL (70-110); LDL Cholesterol,Calculated 148.9 mg/dL (0.0-131.0); Non-African American GFR(CKD) 104.2 (60.0-200.0); Potassium 4.6 mmol/L (3.5-5.5); Sodium 141 mmol/L (135-145); Total Protein 6.5 g/dL (6.2-8.2)
[2022-06-17 19:01] LABS: HIV 2 AB Non-Reactive (Non-Reactive); HIV AB P24 Non-Reactive (Non-Reactive); HIV P24 AG Non-Reactive (Non-Reactive)
== END | disposition home or self-care (01) ==
LOC: LABWHC1 08:53
PROVIDERS: ATTEND Family Medicine
DX: Z11.4 Encounter for screening for human immunodeficiency virus [HIV] (principal); E78.5 Hyperlipidemia, unspecified
CPT/HCPCS: 36415; 80053; 80061; 84443; 85025; 87390

== ENCOUNTER → 2023-03-17 | Outpatient (CLI) | payer OTHER ==
[2023-03-17 11:59] LABS: Basophils # (A) 0.01 X 10*3/uL (0.00-0.10); Basophils % (A) 0.2 %; Eosinophils # (A) 0.05 X 10*3/uL (0.04-0.35); Eosinophils % (A) 0.9 %; HGB 12.2 g/dL (12.0-15.0); Lymphocytes # (A) 2.22 X 10*3/uL (0.90-5.00); Lymphocytes % (A) 38.8 %; MCH 29.4 pg (27.0-32.0); MCHC 32.1 g/dL (32.0-37.0); MCV 91.6 FL (80.0-97.0); Mean Platelet Volume 10.4 FL (9.5-12.2); Monocytes # (A) 0.38 X 10*3/uL (0.20-1.00); Monocytes % (A) 6.6 %; NRBC Per 100 WBC 0 X 10*3/uL (0.00-0.01); Neutrophils # (A) 3.05 X 10*3/uL (1.80-7.70); Neutrophils % (A) 53.3 %; Platelet Count 424 X 10*3/uL (140-440); RBC 4.15 X 10*6/uL (4.10-5.20); RDW 12.7 % (11.5-14.5); WBC 5.72 X 10*3/uL (4.50-10.00)
[2023-03-17 12:33] LABS: % Iron Saturation 15.47 (12.00-45.00); ALT 27 U/L (8-44); AST 16 U/L (13-35); Albumin 4.1 g/dL (3.8-4.9); Albumin/Globulin Ratio 1.95 Ratio (1.60-3.17); Alkaline Phosphatase 177 U/L (41-126); BUN/Creat Ratio 15.29 Ratio (12.00-20.00); Blood Urea Nitrogen 10.7 mg/dL (9.0-27.0); Calcium 9.5 mg/dL (8.7-10.3); Carbon Dioxide 25.3 mmol/L (21.6-31.8); Chloride 106 mmol/L (96-109); Chol/HDL Ratio 4.81 Ratio; Globulin 2.1 g/dL (1.6-3.3); Glucose 112 mg/dL (70-110); Iron 54 UG/DL (50-170); Potassium 4.4 mmol/L (3.5-5.5); Rheumatoid Factor, Qnt <15 IU/mL (0-15); Sodium 142 mmol/L (135-145); Total Bilirubin 0.3 mg/dL (0.3-1.2); Total Iron Binding Capacity 349 UG/DL (228-460); Total Protein 6.2 g/dL (6.2-8.2)
== END | disposition home or self-care (01) ==
LOC: LABWHC1 07:42
PROVIDERS: ATTEND Family Medicine
DX: E78.5 Hyperlipidemia, unspecified (principal); R53.83 Other fatigue
CPT/HCPCS: 36415; 80053; 80061; 82306; 82728; 83036; 83540; 83550; 84443; 85025; 86038; 86431

== ENCOUNTER → 2023-03-24 | Outpatient (CLI) | payer OTHER ==
--- NOTE | 2023-03-24 10:43 | MM ---
Reason for Exam: Screening (asymptomatic). Last mammogram was performed 5 year(s) and 4 month(s) ago. Patient History: Menarche at age 10. First Full-Term at age 35. Late child-bearing (after 30). Postmenopausal. Hormonal Contraceptives, starting at age 15 for 20 years. Risk Values: Ivania 5 year model risk: 1.4%. NCI Lifetime model risk: 13.4%. Prior Study Comparison: 03/20/2017 Right Diagnostic Mammogram, [facility]. 12/08/2017 Bilateral Screening Mammogram, [facility]. 12/11/2017 Bilateral Diagnostic Mammogram, [facility]. Tissue Density: The breast tissue is heterogeneously dense. This may lower the sensitivity of mammography. Findings: Analyzed By CAD. There is no suspicious group of microcalcifications or new suspicious mass. Benign-appearing calcifications right breast. Overall Assessment: Benign, BI-RAD 2 Management: Screening Mammogram of both breasts in [address] [facility] will attempt to contact patient to return for supplemental views and ultrasound if indicated. Patient should continue monthly self-breast exams. A clinical breast exam by your physician is recommended on an annual basis. This exam should not preclude additional follow-up of suspicious palpable abnormalities. Note on Ivania scores and lifetime risk: 1. A Ivania score greater than 3% is considered moderate risk. If this is the case, consider specialist referral to assess eligibility for a risk reducing agent. 2. If overall lifetime risk for the development of breast cancer is 20% or higher, the patient may qualify for future screening with alternating mammogram and breast MRI. Electronically signed and approved by: Ayaan Teresa DO
== END | disposition home or self-care (01) ==
LOC: RADMAMWWP 09:09
PROVIDERS: ATTEND Family Medicine
DX: Z12.31 Encounter for screening mammogram for malignant neoplasm of breast (principal); Z80.3 Family history of malignant neoplasm of breast
CPT/HCPCS: 77067

== ENCOUNTER → 2023-04-04 | Outpatient (CLI) | payer OTHER ==
--- NOTE | 2023-04-04 20:43 | US ---
EXAMINATION TYPE: US pelvis complete transvag DATE OF EXAM: 04/04/2023 COMPARISON: 06/17/2013. CLINICAL INDICATION: Female, 48 years old with history of R10.2 PELVIC AND PERINEAL PAIN; pelvic pres sure, h/o ovarian cysts TECHNIQUE: 06/23/2019. Transabdominal sonographic images of the pelvis were acquired. Transvaginal s onographic images Date of LMP: 2 years ago EXAM MEASUREMENTS: Uterus: 7.6 x 4.3 x 3.5 cm Endometrial Stripe: 0.7 cm Right Ovary: 3.3 x 1.4 x 1.8 cm Left Ovary: 3.0 x 2.5 x 1.5 cm 1. Uterus: Anteverted wnl 2. Endometrium: No masses. 3. Right Ovary: wnl 4. Left Ovary: wnl 5. Bilateral Adnexa: wnl 6. Posterior cul-de-sac: wnl IMPRESSION: 1. Endometrium within normal limits for thickness. 2. No ovarian cysts identified.
== END | disposition home or self-care (01) ==
LOC: RADUSWWP 16:10
PROVIDERS: ATTEND Family Medicine
DX: R10.2 Pelvic and perineal pain (principal)
CPT/HCPCS: 76830; 76856

== ENCOUNTER → 2024-04-09 | Outpatient (CLI) | payer OTHER ==
[2024-04-09 09:59] LABS: Basophils % (A) 0 %; Eosinophils % (A) 0 %; HCT 41.2 % (34.0-46.0); HGB 12.8 gm/dL (11.4-16.0); Hypochromasia Slight; Lymphocytes # (A) 2.5 k/uL (1.0-4.8); Lymphocytes % (A) 45 %; MCH 29.2 pg (25.0-35.0); MCHC 31.2 g/dL (31.0-37.0); MCV 93.8 fL (80.0-100.0); Mean Platelet Volume 7.2; Monocytes # (A) 0.3 k/uL (0-1.0); Monocytes % (A) 6 %; Neutrophils # (A) 2.6 k/uL (1.3-7.7); Neutrophils % (A) 47 %; Platelet Count 341 k/uL (150-450); RBC 4.39 m/uL (3.80-5.40); RDW 12.6 % (11.5-15.5); WBC 5.4 k/uL (3.8-10.6)
[2024-04-09 15:49] LABS: ALT 29 U/L (8-44); AST 23 U/L (13-35); Albumin 4.3 g/dL (3.8-4.9); Albumin/Globulin Ratio 2.15 Ratio (1.60-3.17); Alkaline Phosphatase 143 U/L (41-126); BUN/Creat Ratio 19.57 Ratio (12.00-20.00); Blood Urea Nitrogen 13.7 mg/dL (9.0-27.0); Calcium 9.4 mg/dL (8.7-10.3); Carbon Dioxide 25.8 mmol/L (21.6-31.8); Chloride 104 mmol/L (96-109); Chol/HDL Ratio 3.87 Ratio; Glucose 104 mg/dL (70-110); LDL Cholesterol,Calculated 181.7 mg/dL (0.0-131.0); Potassium 4.9 mmol/L (3.5-5.5); Sodium 140 mmol/L (135-145); Total Bilirubin 0.2 mg/dL (0.3-1.2); Total Protein 6.3 g/dL (6.2-8.2); VLDL Calculation 14.04 mg/dL (5.00-40.00)
== END | disposition home or self-care (01) ==
LOC: LABWHC1 09:13
PROVIDERS: ATTEND Family Medicine
DX: E78.5 Hyperlipidemia, unspecified (principal); E55.9 Vitamin D deficiency, unspecified; R73.03 Prediabetes
CPT/HCPCS: 36415; 80053; 80061; 82306; 83036; 84443; 85025